=== PATIENT | male | born 1950 | race Caucasian/White ===

== ENCOUNTER 2018-06-07 12:30 | Emergency (ER) | payer BC, OTHER ==
[~2018-06-07] VITALS: Ht 182.9 cm; Wt 98.0 kg
[~2018-06-07 12:30] MED LIST: ACAR25TA9; ASPI325T17 PO; ATOR80TA PO; CHLO25TA PO; HYDR25TA6 PO; INSU100V8 SQ; LISI5TAB7 PO; METF10002 PO; METF500T5 PO; OMEP20CA9 PO; OMEP40CA6 PO
[2018-06-07] MEDS ORDERED: LIDOCAINE-MPF 2% ,5ML ONE (14:15)
[2018-06-07] MEDS ORDERED: CALC-60 PO (14:23)
[2018-06-07] MEDS ORDERED: LIDOCAINE-MPF 1%, 5ML INFIL ONE (14:30)
[2018-06-07] MEDS ORDERED: BRIM5DRO3 EACHEYE (14:32)
[2018-06-07] MEDS ORDERED: LATA2.5D3 EACHEYE (14:32)
[2018-06-07] MEDS ORDERED: FLUT9.9S NAS (14:32)
[2018-06-07] MEDS ORDERED: ALBU90AE INH (14:32)
[2018-06-07] MEDS ORDERED: METF500T5 PO (14:32)
[2018-06-07] MEDS ORDERED: METF10003 PO (14:32)
[2018-06-07] MEDS ORDERED: SULF1TAB24 PO (14:32)
[2018-06-07] MEDS ORDERED: MELO7.5T31 PO (14:32)
[2018-06-07 14:56] VITALS: BP 168/81
== END 2018-06-07 14:58 | disposition home or self-care (01) ==
LOC: ED 13:43
DX: L02.416 Cutaneous abscess of left lower limb (principal); E11.9 Type 2 diabetes mellitus without complications
CPT/HCPCS: 10060; 87070; 87077; 87186; 87205; 99284